=== PATIENT | male | born 1995 | race African-American/Black ===

== ENCOUNTER 2019-02-12 04:03 | Emergency (ER) | payer MEDICAID, OTHER ==
[~2019-02-12] VITALS: Ht 167.6 cm; Wt 54.0 kg
[2019-02-12] MEDS ORDERED: KETOROLAC 30MG/ML VIAL IM ONE (07:45)
[2019-02-12 07:49] VITALS: BP 109/77
== END 2019-02-12 08:29 | disposition home or self-care (01) ==
LOC: ER 04:03
DX: S70.01XA Contusion of right hip, initial encounter (principal); S30.0XXA Contusion of lower back and pelvis, initial encounter; F12.10 Cannabis abuse, uncomplicated; W18.39XA Other fall on same level, initial encounter; Y93.01 Activity, walking, marching and hiking; Y92.89 Other specified places as the place of occurrence of the external cause; Y99.8 Other external cause status
CPT/HCPCS: 96372; 99283; J1885

== ENCOUNTER 2023-09-03 14:29 | Emergency (ER) | payer OTHER ==
[~2023-09-03] VITALS: Ht 165.1 cm; Wt 54.4 kg
[2023-09-03 14:45] VITALS: TEMP 98; O2SAT 99
[2023-09-03] MEDS ORDERED: IBUP-2029 MT (15:23)
[2023-09-03 15:30] VITALS: BP 122/86; PULSE 66; RESP 16
[2023-09-03] MEDS: IBUPROFEN 600MG TABLET PO ONE (15:30)
== END 2023-09-03 16:50 | disposition home or self-care (01) ==
LOC: ER 14:29
DX: S43.401A Unspecified sprain of right shoulder joint, initial encounter (principal); F12.10 Cannabis abuse, uncomplicated; V49.9XXA Car occupant (driver) (passenger) injured in unspecified traffic accident, initial encounter; Y93.89 Activity, other specified; Y92.89 Other specified places as the place of occurrence of the external cause; Y99.8 Other external cause status
CPT/HCPCS: 73030; 99283